=== PATIENT | female | born 2000 | race Two or more races ===

== ENCOUNTER 2023-01-29 20:20 | Emergency (ER) | payer OTHER ==
[~2023-01-29] VITALS: Ht 157.5 cm; Wt 127.0 kg
[2023-01-29] MEDS ORDERED: COZAAR25 MG PO (20:51)
[2023-01-29] MEDS ORDERED: SINGULAIR10 MG PO (20:51)
== END 2023-01-29 22:17 | disposition home or self-care (01) ==
LOC: ER 20:20
DX: B34.9 Viral infection, unspecified (principal); Z20.822 Contact with and (suspected) exposure to COVID-19

== ENCOUNTER 2023-02-05 15:22 | Emergency (ER) | payer OTHER ==
[~2023-02-05] VITALS: Ht 157.5 cm; Wt 131.5 kg
[~2023-02-05 15:22] MED LIST: COZAAR25 MG PO; SINGULAIR10 MG PO
== END 2023-02-05 20:41 | disposition home or self-care (01) ==
LOC: ER 15:22
DX: M62.838 Other muscle spasm (principal); R51.9 Headache, unspecified; Z20.822 Contact with and (suspected) exposure to COVID-19; I10 Essential (primary) hypertension

== ENCOUNTER 2023-02-14 22:56 | Emergency (ER) | payer OTHER ==
[~2023-02-14] VITALS: Ht 157.5 cm; Wt 127.0 kg
== END 2023-02-15 06:15 | disposition home or self-care (01) ==
LOC: ER 22:56
DX: R10.2 Pelvic and perineal pain (principal); R30.0 Dysuria; K29.60 Other gastritis without bleeding

== ENCOUNTER 2023-10-29 12:42 | Emergency (ER) | payer OTHER ==
[~2023-10-29] VITALS: Ht 160 cm; Wt 130.2 kg
[2023-10-29] MEDS ORDERED: OZEMPIC0.25 MG/02 SQ (13:04)
[2023-10-29] MEDS ORDERED: IPRATROPIUM/ALBUTEROL SULFATE 3 ML AMPUL.NEB IH SCH (13:45)
[2023-10-29] MEDS ORDERED: GUAIFENESIN/DEXTROMETHORPHAN 100 MG/5 ML ML PO ONE (13:45)
[2023-10-29] MEDS ORDERED: METHYLPREDNISOLONE SOD SUCC 125 MG VIAL IV ONE (13:45)
[2023-10-29 14:24] LABS: HEMATOCRIT 37.4 % (36.0-45.00); MEAN CORPUSCULAR HGB CONC 31.4 g/dl (32.0-36.0); PLATELET COUNT 203 K/uL (150-450); RED BLOOD COUNT 5.54 M/uL (4.00-6.00); RED CELL DISTRIBUTION WIDTH 15.5 % (11.5-14.5)
[2023-10-29 14:25] LABS: HEMOGLOBIN 11.7 g/dL (12.0-15.00); MEAN CELL VOLUME 67.5 fL (80.00-100.00); MEAN CORPUSCULAR HEMOGLOBIN 21.1 pg (27.00-32.0)
[2023-10-29 14:49] LABS: ALBUMIN 3.9 gm/dL (3.4-5.0); BILIRUBIN TOTAL 0.71 mg/dL (0.3-1.2); CALCIUM 9.1 mg/dL (8.5-10.1); CREATININE SERUM 0.78 mg/dL (0.55-1.02); GFR 91.52; GLOBULINA 3.6 G/DL (2.4-3.5); POTASSIUM 4.28 mEq/L (3.5-5.1); TOTAL PROTEIN 7.5 gm/dL (6.4-8.2)
[2023-10-29] MEDS ORDERED: TUSNEL LIQUID178 ML PO (15:44)
[2023-10-29] MEDS ORDERED: MEDROLPACK PO (15:44)
[2023-10-29] MEDS ORDERED: ZITHROMAX500 MG PO (15:44)
[2023-10-29] MEDS ORDERED: ALBUTEROL2.5 MG/3 M IH (15:44)
== END 2023-10-29 15:50 | disposition home or self-care (01) ==
LOC: ER 12:43
PROVIDERS: General Practice
DX: J45.909 Unspecified asthma, uncomplicated (principal); Z20.822 Contact with and (suspected) exposure to COVID-19; I10 Essential (primary) hypertension

== ENCOUNTER 2024-07-21 15:39 | Emergency (ER) | payer OTHER ==
[~2024-07-21] VITALS: Ht 157.5 cm; Wt 116.1 kg
[~2024-07-21 15:39] MED LIST changes: +ALBUTEROL2.5 MG/3 M IH; +MEDROLPACK PO; +OZEMPIC0.25 MG/02 SQ; +TUSNEL LIQUID178 ML PO; +ZITHROMAX500 MG PO
[2024-07-21 16:27] VITALS: BP 134/70; O2SAT 100
[2024-07-21] MEDS ORDERED: KETOROLAC TROMETHAMINE 60 MG VIAL IM ONE (19:30)
[2024-07-21 19:55] LABS: PH,URINE 5.5 (5.0-8.0); URINE APPEARANCE Cloudy; URINE BILIRRUBIN Negative (NEGATIVE); URINE BLOOD Negative; URINE COLOR Yellow; URINE GLUCOSE Negative (NEGATIVE); URINE KETONE 15 (NEGATIVE); URINE LEUKOCYTE Large; URINE NITRATE Negative; URINE PROTEIN Negative (NEGATIVE); URINE UROBILINOGEN 0.2 E.U./dl
[2024-07-21 19:58] LABS: URINE BACTERIA 3686.5 uL (0.0-1933); URINE RBC 4.5 uL (0.0-20.8); URINE WBC 150.7 uL (0.0-23.2)
[2024-07-21 20:02] LABS: HEMATOCRIT 36.6 % (36.0-45.00); HEMOGLOBIN 11.7 g/dL (12.0-15.00); MEAN CORPUSCULAR HEMOGLOBIN 21.9 pg (27.00-32.0); PLATELET COUNT 243 K/uL (150-450); RED BLOOD COUNT 5.36 M/uL (4.00-6.00); RED CELL DISTRIBUTION WIDTH 14.7 % (11.5-14.5)
[2024-07-21 20:10] LABS: MEAN CELL VOLUME 68.3 fL (80.00-100.00)
[2024-07-21 20:21] LABS: BILIRUBIN TOTAL 0.55 mg/dL (0.3-1.2); CALCIUM 9.2 mg/dL (8.5-10.1); CREATININE SERUM 0.67 mg/dL (0.55-1.02); GFR 108.13; GLOBULINA 3.3 G/DL (2.4-3.5); POTASSIUM 4.13 mEq/L (3.5-5.1); TOTAL PROTEIN 7.3 gm/dL (6.4-8.2)
[2024-07-21] MEDS ORDERED: CEFTRIAXONE SODIUM 1,000 MG VIAL IM ONE (22:30)
[2024-07-22] MEDS ORDERED: ZOFRAN8 MG PO (23:17)
[2024-07-22] MEDS ORDERED: PEPCID AC20 MG PO (23:17)
[2024-07-22] MEDS ORDERED: TAMS0.4C PO (23:17)
== END 2024-07-21 23:44 | disposition home or self-care (01) ==
LOC: ER 15:41
PROVIDERS: Preventive Medicine Public Health & General Preventive Medicine
DX: N39.0 Urinary tract infection, site not specified (principal); I10 Essential (primary) hypertension; J45.909 Unspecified asthma, uncomplicated

== ENCOUNTER 2024-07-22 16:48 | Emergency (ER) | payer OTHER ==
[~2024-07-22] VITALS: Ht 157.5 cm; Wt 116.1 kg
[2024-07-22 17:52] VITALS: BP 163/75; O2SAT 99
[2024-07-22] MEDS ORDERED: 0.9 % SODIUM CHLORIDE 1,000 ML IV ONE (18:45)
[2024-07-22] MEDS ORDERED: FAMOtidine 10 MG/ML (4ML VIAL) IV ONE (18:45)
[2024-07-22] MEDS ORDERED: KETOROLAC TROMETHAMINE 60 MG VIAL IM ONE (18:45)
[2024-07-22] MEDS ORDERED: CEFTRIAXONE SODIUM 1,000 MG VIAL IV ONE (18:45)
[2024-07-22 19:26] LABS: HEMATOCRIT 37.5 % (36.0-45.00); HEMOGLOBIN 11.5 g/dL (12.0-15.00); MEAN CORPUSCULAR HEMOGLOBIN 21.3 pg (27.00-32.0); MEAN CORPUSCULAR HGB CONC 30.8 g/dl (32.0-36.0); PLATELET COUNT 227 K/uL (150-450); RED BLOOD COUNT 5.43 M/uL (4.00-6.00); RED CELL DISTRIBUTION WIDTH 14.1 % (11.5-14.5)
[2024-07-22] MEDS ORDERED: ONDANSETRON HCL 2 MG/ML VIAL IV ONE (19:30)
[2024-07-22 20:11] LABS: ALBUMIN 3.8 gm/dL (3.4-5.0); ALKALINE PHOSPHATASE 50 U/L (50-136); ALT/SGPT 17 U/L (12-78); ANION GAP 9 (10.0-20.0); AST/SGOT 15 U/L (15-37); BILIRUBIN TOTAL 0.54 mg/dL (0.3-1.2); BLOOD UREA NITROGEN 12 mg/dL (7-18); BUN CREA RATIO 17 (7.0-25.0); CALCIUM 9.2 mg/dL (8.5-10.1); CARBON DIOXIDE 25 mEq/L (21-32); CHLORIDE 110 mmol/L (98-107); CREATININE SERUM 0.72 mg/dL (0.55-1.02); GFR 99.52; GLOBULINA 3.9 G/DL (2.4-3.5); GLUCOSE FASTING 78 mg/dL (65-100); OSMOLALITY SERUM 278 MOSM/KG (275-295); POTASSIUM 4.12 mEq/L (3.5-5.1); SODIUM 140 mmol/L (136-145); TOTAL PROTEIN 7.7 gm/dL (6.4-8.2)
[2024-07-22 20:12] LABS: HCG QUANTITATIVE < 1 mUI/mL (1-3)
[2024-07-22 20:29] LABS: URINE APPEARANCE Cloudy; URINE BILIRRUBIN Negative (NEGATIVE); URINE BLOOD Negative; URINE COLOR Yellow; URINE GLUCOSE Negative (NEGATIVE); URINE LEUKOCYTE Large; URINE NITRATE Negative; URINE PROTEIN Negative (NEGATIVE); URINE UROBILINOGEN 0.2 E.U./dl
[2024-07-22 20:31] LABS: URINE BACTERIA 215.3 uL (0.0-1933); URINE EPITHELIAL CELLS 59.8 uL (0.0-38.8); URINE RBC 2.1 uL (0.0-20.8); URINE WBC 33.2 uL (0.0-23.2)
[2024-07-22 20:39] LABS: URINE KETONE 40 (NEGATIVE)
[2024-07-22] MEDS ORDERED: TAMS0.4C PO (23:17)
[2024-07-22] MEDS ORDERED: PEPCID AC20 MG PO (23:17)
[2024-07-22] MEDS ORDERED: ZOFRAN8 MG PO (23:17)
== END 2024-07-22 23:28 | disposition home or self-care (01) ==
LOC: ER 16:50
PROVIDERS: General Practice
DX: R11.2 Nausea with vomiting, unspecified (principal); N39.0 Urinary tract infection, site not specified; R10.9 Unspecified abdominal pain; I10 Essential (primary) hypertension
CPT/HCPCS: 36415; 74177; Q9965